=== PATIENT | male | born 2005 | race Caucasian/White ===

== ENCOUNTER 2024-04-16 15:00 | Emergency (ER) | payer SELFPAY ==
[~2024-04-16] VITALS: Ht 182.9 cm; Wt 86.0 kg
[2024-04-16 15:06] VITALS: O2SAT 98
[2024-04-16 15:46] LABS: BASOPHILS % 0.5 % (0.0-2.0); EOSINOPHILS % 0.1 % (0.0-5.0); HEMATOCRIT. 44.7 % (42.0-52.0); HEMOGLOBIN. 15.1 g/dL (14.0-18.0); LYMPHOCYTES % 12.3 % (20.0-50.0); MEAN CORPUSCULAR HEMOGLOBIN 30.5 pg (28.0-32.0); MEAN CORPUSCULAR HGB CONC 33.9 g/dL (31.0-37.0); MEAN CORPUSCULAR VOLUME 89.9 fL (80.0-94.0); MEAN PLATELET VOLUME 8.8 fl (7.4-10.4); MONOCYTES % 8.1 % (2.0-8.0); PLATELET 212 x1000/uL (130-400); RED BLOOD CELL COUNT 4.97 mill/uL (4.7-6.1); RED CELL DISTRIBUTION WIDTH 13.3 % (11.6-14.6); WHITE BLOOD COUNT 14.2 x1000/uL (4.5-11.0)
[2024-04-16 15:52] LABS: CHLORIDE 100 mEq/L (98-107); POTASSIUM 3.7 mEq/L (3.5-5.1); SODIUM 133 mEq/L (136-145)
[2024-04-16 15:53] LABS: CARBON DIOXIDE 25 mEq/L (21-32)
[2024-04-16 15:54] LABS: CALCIUM 9.9 mg/dL (8.7-10.4)
[2024-04-16 15:58] LABS: CREATININE 1.1 mg/dL (0.6-1.3); GLUCOSE 97 mg/dL (70-105)
[2024-04-16 15:59] LABS: UREA NITROGEN BLOOD 11 mg/dL (9-23)
[2024-04-16 16:00] LABS: ALANINE AMINOTRANSFERASE 48 IU/L (10-49); ASPARTATE AMINOTRANSFERASE 62 IU/L (<34); ETHANOL BLOOD < 10 mg/dL (<10)
[2024-04-16 16:01] LABS: BILIRUBIN DIRECT 0.3 mg/dL (<=3.0); BILIRUBIN TOTAL 0.9 mg/dL (0.1-1.0); CREATINE KINASE 129 IU/L (46-171); PROTEIN TOTAL 8.2 g/dL (6.0-8.3); TROPONIN I HIGH SENSITIVITY 6 ng/L (3.0-53)
[2024-04-16] MEDS: SODIUM CHLORIDE 0.9% 1,000 ML IV ONE (16:09)
[2024-04-16] MEDS: KETOROLAC 30MG/ML VIAL IV ONE (16:09)
[2024-04-16] MEDS: ONDANSETRON HCL 4MG/2ML INJ IV ONE (16:36)
[2024-04-16] MEDS: MORPHINE SULFATE 4 MG/ML INJ (FOR IV/IM USE) IV ONE (19:27)
[2024-04-16] MEDS ORDERED: IBUP-2029 MT (19:49)
[2024-04-16 20:15] VITALS: BP 124/80; PULSE 90; RESP 20; TEMP 36.94740; O2SAT 97
[2024-04-17] MEDS ORDERED: IOHEXOL-300 100 ML BOTTLE ONE (00:15)
== END 2024-04-16 20:56 | disposition home or self-care (01) ==
LOC: ER 15:00
DX: B34.9 Viral infection, unspecified (principal); Z20.822 Contact with and (suspected) exposure to COVID-19
CPT/HCPCS: 80076; 80048; 80320; 82550; 82962; 87430; 83880; 83690; 85025; 84484; 87070; 87804 ×2; 36415; 71045; 74177; 93005; 96361; 96374; 96375; 99285; 87426; Q9967; J1885; J2405; J2270; J7030; G0480